=== PATIENT | male | born 1995 | race Caucasian/White ===

== ENCOUNTER 2021-01-01 21:27 | Emergency (ER) | payer MEDICAID, SELFPAY ==
[2021-01-01 21:28] VITALS: BP 125/103; PULSE 102; RESP 18; TEMP 36.6; O2SAT 98; BMI 22.1
[2021-01-01 21:38] VITALS: RESP 16
--- NOTE | 2021-01-01 21:43 | EX.ED.DYSGE1 ---
HPI History of Present Illness Chief Complaint: General Illness Detail of Chief Complaint: Vomiting Informant: patient Narrative Narrative: Patient presents with vomiting that started this evening. Patient states that he went to his driveway and sat in his car with the car turned down for about 5 to 10 minutes watching a movie. He was try to get away from the kids and significant other like he has done multiple times in the past. Patient states that he turned the car off and about 25 minutes later started feeling nauseated and vomited several times. Patient also states that he is not been able to taste or smell for the last 2 days and he ate his dinner even though he can taste it tonight. He denies diarrhea. He denies fever. He denies cough. He denies Covid exposures. Patient states his car is not very old and he is not had carbon monoxide issues. Prior similar symptoms: No PFSH PFSH Medical History (Updated 01/01/21 @ 22:[address] Jennifer Waller, DO) Asthma Home Medications NK 01/01/21 [History Last Taken Unknown] ondansetron 4 mg PO Q8H PRN PRN #10 tab 01/01/21 [Rx Last Taken Unknown] Allergy/AdvReac Type Severity Reaction Status Date / Time No Known Allergies Allergy Verified 01/01/21 21:30 Social History Smoking Status: Current every day smoker tobacco type: cigarettes ROS ROS ED Constitutional Constitutional ED: Reports systems reviewed and no addt'l complaints, except as documented; Denies body ache(s), change in weight or chills Eyes Eyes: Denies acute decrease in peripheral vision, change in vision, double vision or loss of vision ENT ENT ED: Reports none; Denies ear pain, lip swelling, loss taste/smell, neck pain, otalgia or sore throat Cardiovascular Cardiovascular: Reports none; Denies abdominal pain, chest pain with activity, leg edema, lightheadedness, palpitations, rapid heart rate or syncope Respiratory/Chest Respiratory/Chest: Reports none; Denies change in mental status, dry cough, dyspnea, hemoptysis, shortness of breath at rest or shortness of breath with exertion Gastrointestinal Gastrointestinal: Reports none, nausea and vomiting; Denies abdominal pain, change in stool character, diarrhea, hematemesis, hematochezia, melena or rectal bleeding Genitourinary Genitourinary ED: Reports none; Denies abdominal discomfort, anuria, dysuria, genital pain or polyuria Musculoskeletal Musculoskeletal: Reports none; Denies arthralgias, back pain, difficulty walking, extremity pain, muscle weakness or myalgias Integumentary Reports none; Denies abscess or rash Neurologic Neurologic: Reports none and headache(s); Denies abnormal gait, confusion, focal weakness, frequent falls, loss of vision, numbness, paresthesias, radicular pain, vertigo or weakness Psychiatric Psychiatric: Reports systems reviewed and no addt'l complaints, except as documented and none; Denies behavioral changes, confusion, difficulty concentrating, hallucinations, suicidal ideation, tactile hallucinations or visual hallucinations Endocrine Endocrinology: Denies none, cold intolerance, excessive sweating, fatigue or heat intolerance Hematologic/Lymphatic Hematologic/Lymphatic: Reports none; Denies anemia, easy bleeding or easy bruising Allergic/Immunologic Allergic/Immunologic ED: Denies as per HPI, none, lip swelling, mouth swelling, throat swelling, tongue swelling or hives EXAM Physical Exam Const Vital Signs: 01/01/21 21:28 01/01/21 21:38 Temperature 98 F Temperature Source Temporal Pulse Rate 102 H Respiratory Rate 18 16 Blood Pressure 125/103 H Blood Pressure Mean 110 Pulse Ox 98 Oxygen Delivery Method Room Air Positive well nourished and well developed General Appearance ED: well developed and NAD HEENT Reports TM's clear and moist mucous membranes normocephalic and atraumatic; Negative for trauma or tenderness Tympanic Membrane ED: Yes TM's clear Eyes PERRL and EOMs intact bilaterally General Eye ED: Negative for pale conjunctiva or scleral icterus Neck no lymphadenopathy, supple and no JVD General: Negative for tenderness Chest Wall inspection of chest normal and palpation of chest normal Chest: Negative for tenderness Resp normal respiratory effort and clear to auscultation bilaterally Effort and Inspection: Negative for respiratory distress or pain with movement Auscultation: Negative for rhonchi, wheezes or diminished lung sounds Cardio regular rate, regular rhythm, S1 normal heart sound, S2 normal heart sound and no murmurs Peripheral Pulses: pulses 2+ throughout GI normal to inspection, nondistended, normoactive bowel sounds, soft to palpation, non-tender, non-distended and no masses Back/Spine no CVA tenderness and no thoracic nor lumbar tenderness Extremity normal to inspection General Extremety ED: Negative for edema General Extremity: Negative for edema Neuro oriented x3, CN's II-XII intact bilaterally, no sensory deficits noted and gait normal Sensorium / Orientation: awake, alert, oriented to person, oriented to place and oriented to time Motor Exam: strength 5/5 throughout and strength abnormal Psych mental status grossly normal Skin no rashes or lesions noted and no wounds MDM MDM MDM Narrative Medical decision making narrative: Patient received Zofran 4 mg ODT. He had no further vomiting. Patient is positive for COVID-19. Patient had a carboxyhemoglobin level of 5.4 and being that he is a smoker do not feel this is contributing to his symptomatology. Lab Data Attestation: I reviewed the patient's lab results. ABG Data ABG results: ABG 01/01/21 21:50 VBG Carboxyhemoglobin 5.4 H Discharge Plan Triage Chief Complaint: General Illness ED Provider: Jennifer Waller Dx/Rx/DC Orders Clinical Impression: COVID-19, Vomiting Instructions: Coronavirus Disease 2019 (COVID-19): Overview, ED Vomiting (Adult), Caring for Someone Who Has COVID-19 Prescriptions: New ondansetron [ondansetron] 4 MG tablet 4 mg PO Q8H PRN PRN (Reason: Nausea) Qty: 10 RF: 0 No Action NK RF: 0 Referrals: [facility] [Other] Activity Restrictions/Additional Instructions: See your family doctor as needed Disposition Disposition: Home, Self Care
[2021-01-01] MEDS: Ondansetron ODT 4 MG Tablet PO (21:47)
[2021-01-01 22:23] LABS: Carboxyhemoglobin Frac (CO) 5.4 % (0.0-1.5)
[2021-01-01 22:34] VITALS: PULSE 92; RESP 18; O2SAT 97
== END 2021-01-01 22:36 | disposition home or self-care (01) ==
PROVIDERS: Emergency Provider Emergency Medicine
DX: U07.1 COVID-19 (principal); R11.2 Nausea with vomiting, unspecified; F17.210 Nicotine dependence, cigarettes, uncomplicated
CPT/HCPCS: 36415; 82375; 87426; 99283